=== PATIENT | female | born 1965 | race Caucasian/White ===

== ENCOUNTER 2017-09-04 23:27 | Emergency (ER) | payer BC ==
--- NOTE | 2017-09-05 00:34 | ED PDOC ---
HPI: Psych/Substance Abuse Time Seen by Provider: 09/04/17 23:41 Chief Complaint (Nursing): Psychiatric Evaluation Chief Complaint (Provider): crisis eval History Per: Patient, Family Additional Complaint(s): 52 y/o female presents with family for crisis eval. As per daughter, patient states she has been under a lot of stress and is not eating or sleeping. Patient also having "tantrums", where she will yell and scratch herself and cry. Patient denies suicidal/homicidal ideations, hallucinations, acute physical complaints. Past Medical History Reviewed: Historical Data, Nursing Documentation, Vital Signs Vital Signs: Last Vital Signs Temp 98.0 F 09/04/17 23:33 Pulse 20 L 09/04/17 23:33 Resp 18 09/04/17 23:33 BP 161/98 H 09/04/17 23:33 Pulse Ox 99 09/04/17 23:33 - Medical History PMH: HTN - Surgical History Surgical History: No Surg Hx - Family History Family History: States: No Known Family Hx - Living Arrangements Living Arrangements: With Family - Social History Current smoker - smoking cessation education provided: No Alcohol: None Drugs: Denies - Home Medications Home Medications: Ambulatory Orders Medication Instructions Recorded amLODIPine [Norvasc] 1 tab PO DAILY 06/12/15 - Allergies Allergies/Adverse Reactions: Allergies Allergy/AdvReac Type Severity Reaction Status Date / Time No Known Allergies Allergy Verified 09/04/17 23:33 Review of Systems ROS Statement: Except As Marked, All Systems Reviewed And Found Negative Psych: Positive for: Depression Physical Exam - Reviewed Nursing Documentation Reviewed: Yes Vital Signs Reviewed: Yes - Physical Exam Appears: Positive for: Well, Non-toxic, No Acute Distress Head Exam: Positive for: ATRAUMATIC, NORMAL INSPECTION, NORMOCEPHALIC Skin: Positive for: Normal Color Eye Exam: Positive for: Normal appearance ENT: Positive for: Normal ENT Inspection Cardiovascular/Chest: Positive for: Regular Rate, Rhythm Respiratory: Positive for: Normal Breath Sounds Gastrointestinal/Abdominal: Positive for: Normal Exam Back: Positive for: Normal Inspection Extremity: Positive for: Normal ROM Neurologic/Psych: Positive for: Alert, Oriented - ECG O2 Sat by Pulse Oximetry: 99 - Progress ED Course And Treament: Patient evaluated by lot worker; does not meet criteria for admission at this time as per Dr. Perdomo. Appt given for Patient stable for discharge Advised follow up as scheduled Return precautions given Disposition - Clinical Impression Clinical Impression: Anxiety - Patient ED Disposition Is Patient to be Admitted: No Counseled Patient/Family Regarding: Diagnosis, Need For Followup - Disposition Disposition: Routine/Home Disposition Time: 02:25 Condition: IMPROVED Instructions: Anxiety, Adult (DC) Forms: [employer] (Beninese), [facility] ED School/Work Excuse Print Language: TURKMEN
[2017-09-05 00:46] VITALS: BP 146/93; PULSE 74; RESP 16; TEMP 98.4
[2017-09-05 02:57] VITALS: O2SAT 97
== END 2017-09-05 02:56 | disposition home or self-care (01) ==
LOC: H.ER 23:27
DX: F41.9 Anxiety disorder, unspecified (principal); I10 Essential (primary) hypertension

== ENCOUNTER 2017-09-06 10:24 | Emergency (ER) | payer BC ==
[2017-09-06 10:29] VITALS: BMI 24.3
[2017-09-06 10:31] VITALS: BP 125/81; PULSE 79; RESP 16; TEMP 99.1; O2SAT 96
--- NOTE | 2017-09-06 10:46 | ED PDOC ---
HPI: Psych/Substance Abuse Time Seen by Provider: 09/06/17 10:31 Chief Complaint (Nursing): Psychiatric Evaluation Chief Complaint (Provider): Psychiatric Evaluation History Per: Patient, Family Onset/Duration Of Symptoms: Days Current Symptoms Are (Timing): Still Present Additional Complaint(s): 52 y/o female with a PMHx of HTN and psychiatric admission 20 years ago (not been on medications) brought by family after being seen 2 days ago for evaluation of stress induced anxiety, decreased appetite, and unhappiness. Unclear if patient has had suicidal ideations, but denies any homicidal ideations. PCP: None reported Past Medical History Reviewed: Historical Data, Nursing Documentation, Vital Signs Vital Signs: Last Vital Signs Temp 99.1 F 09/06/17 10:30 Pulse 79 09/06/17 10:30 Resp 16 09/06/17 10:30 BP 125/81 09/06/17 10:30 Pulse Ox 96 09/06/17 10:30 - Medical History PMH: HTN Denies: Diabetes, Hepatitis, HIV, Seizures, Sexually Transmitted Disease - Surgical History Surgical History: No Surg Hx - Family History Family History: States: Unknown Family Hx - Home Medications Home Medications: Ambulatory Orders Medication Instructions Recorded amLODIPine [Norvasc] 1 tab PO DAILY 06/12/15 hydrOXYzine Pamoate [Vistaril] 50 mg PO HS #5 cap 09/06/17 - Allergies Allergies/Adverse Reactions: Allergies Allergy/AdvReac Type Severity Reaction Status Date / Time lisinopril Allergy SWELLING Verified 09/06/17 10:41 Review of Systems ROS Statement: Except As Marked, All Systems Reviewed And Found Negative Psych: Positive for: Anxiety, Suicidal ideation (unclear, no homicidal ideations ), Other (unhappiness) Physical Exam - Reviewed Nursing Documentation Reviewed: Yes Vital Signs Reviewed: Yes - Physical Exam Appears: Positive for: Non-toxic, No Acute Distress Head Exam: Positive for: ATRAUMATIC, NORMAL INSPECTION, NORMOCEPHALIC Skin: Positive for: Normal Color, Warm, Dry. Negative for: Rash Eye Exam: Positive for: EOMI, Normal appearance, PERRL ENT: Positive for: Normal ENT Inspection Neck: Positive for: Normal, Painless ROM, Supple Cardiovascular/Chest: Positive for: Regular Rate, Rhythm. Negative for: Murmur Respiratory: Positive for: Normal Breath Sounds. Negative for: Respiratory Distress Gastrointestinal/Abdominal: Positive for: Normal Exam, Soft. Negative for: Tenderness Back: Positive for: Normal Inspection. Negative for: L CVA Tenderness, R CVA Tenderness, Vertebral Tenderness Extremity: Positive for: Normal ROM. Negative for: Pedal Edema, Deformity Neurologic/Psych: Positive for: Alert, Oriented. Negative for: Motor/Sensory Deficits - ECG O2 Sat by Pulse Oximetry: 96 (RA) Pulse Ox Interpretation: Normal Medical Decision Making Medical Decision Making: Plan: -Crisis evaluation Scribe Attestation: Documented by Efraín Tovar, acting as a scribe for Harley Reyes MD. Provider Scribe Attestation: All medical record entries made by the Scribe were at my direction and personally dictated by me. I have reviewed the chart and agree that the record accurately reflects my personal performance of the history, physical exam, medical decision making, and the department course for this patient. I have also personally directed, reviewed, and agree with the discharge instructions and disposition. Disposition - Clinical Impression Clinical Impression: Adjustment disorder - Patient ED Disposition Is Patient to be Admitted: No Counseled Patient/Family Regarding: Studies Performed, Diagnosis, Need For Followup, Rx Given - Disposition Referrals: Community Mental Health [Outside] Disposition: Routine/Home Disposition Time: 12:11 Condition: FAIR Prescriptions: hydrOXYzine Pamoate [Vistaril] 50 mg PO HS #5 cap Instructions: Adjustment Disorder Forms: [employer] (Occitan) Print Language: GRENADIAN
== END 2017-09-06 12:26 | disposition home or self-care (01) ==
LOC: H.ER 10:24
DX: F43.22 Adjustment disorder with anxiety (principal); Z00.8 Encounter for other general examination; I10 Essential (primary) hypertension

== ENCOUNTER 2017-09-24 23:38 | Inpatient (IN) | payer BC ==
[2017-09-24 23:38] VITALS: BMI 24.3
[2017-09-25 00:57] VITALS: O2SAT 100
[2017-09-25 01:03] LABS: BASO % 0.5 % (0.0-2.0); EOS % 0.5 % (0.0-4.0); HEMOGLOBIN 15.4 g/dL (12.0-16.0); LYMPH # 2.1 K/uL (1.0-4.3); LYMPH % 21.2 % (20.0-40.0); MEAN CELL VOLUME 94.3 fl (81.0-99.0); MEAN CORPUSCULAR HEMOGLOBIN 32.3 pg (27.0-31.0); MEAN CORPUSCULAR HGB CONC 34.2 g/dL (33.0-37.0); MEAN PLATELET VOLUME 8.8 fl (7.2-11.7); MONO # 0.9 K/uL (0.0-0.8); MONO % 8.5 % (0.0-10.0); NEUT % 69.3 % (50.0-75.0); NRBC % 0.1 % (0.0-0.0); RBC 4.78 Mil/uL (3.80-5.20); RED CELL DISTRIBUTION WIDTH 12.3 % (11.5-14.5); WHITE BLOOD COUNT 10.1 K/uL (4.8-10.8)
[2017-09-25 01:04] LABS: SQUAMOUS EPITHIAL 6 /hpf (0-5); URINE BACTERIA OCC (<OCC); URINE BILIRUBIN NEGATIVE (NEGATIVE); URINE BLOOD NEGATIVE (NEGATIVE); URINE CLARITY CLOUDY (Clear); URINE COLOR AMBER (YELLOW); URINE GLUCOSE (UA) NEG (Normal); URINE LEUKOCYTE ESTERASE SMALL Leu/uL (Negative); URINE PROTEIN 100 mg/dL (NEGATIVE); URINE UROBILINOGEN 0.2-1.0 mg/dL (0.2-1.0)
[2017-09-25 01:13] LABS: BLOOD UREA NITROGEN 24 mg/dl (7-17); CALCIUM 9.8 mg/dL (8.4-10.2); GFR AFRICAN-AMERICAN > 60; GFR NON-AFRICAN AMERICAN > 60
[2017-09-25 01:31] LABS: BARBITURATES, UR NEGATIVE (NEGATIVE); BENZODIAZEPINES, UR NEGATIVE (NEGATIVE); OPIATES, UR NEGATIVE (NEGATIVE); PHENCYCLIDINE, UR NEGATIVE (NEGATIVE)
--- NOTE | 2017-09-25 02:48 | ED PDOC ---
HPI: Psych/Substance Abuse Time Seen by Provider: 09/24/17 23:52 Chief Complaint (Nursing): Psychiatric Evaluation Chief Complaint (Provider): Psychiatric Evaluation History Per: Family (daughter) History/Exam Limitations: no limitations Onset/Duration Of Symptoms: Days (a few) Current Symptoms Are (Timing): Still Present Additional History Per: Patient, EMS Additional Complaint(s): 52 year old female with a pmhx of depression presents to the ED via EMS with daughter who states patient has been depressed for the past couple of days. As per daughter, her mother has not been eating / drinking, verbalized suicidal ideation, and is exhibiting paranoid bizarre behavior where she is refusing to be touched. Otherwise, the patient has no medical complaints. (-) fever, (-) cough, (-) shortness of breath, (-) vomiting. PMD: Dr. Tinoco in [place] Past Medical History Reviewed: Historical Data, Nursing Documentation, Vital Signs Vital Signs: Last Vital Signs Temp 97.9 F 09/24/17 23:55 Pulse 87 09/24/17 23:55 Resp 18 09/24/17 23:55 BP 147/94 H 09/24/17 23:55 Pulse Ox 100 09/24/17 23:55 - Medical History PMH: Dementia, Depression, HTN Denies: Diabetes, Hepatitis, HIV, Seizures, Sexually Transmitted Disease - Family History Family History: States: Unknown Family Hx - Home Medications Home Medications: Ambulatory Orders Medication Instructions Recorded amLODIPine [Norvasc] 1 tab PO DAILY 06/12/15 hydrOXYzine Pamoate [Vistaril] 50 mg PO HS #5 cap 09/06/17 - Allergies Allergies/Adverse Reactions: Allergies Allergy/AdvReac Type Severity Reaction Status Date / Time lisinopril Allergy SWELLING Verified 09/24/17 23:56 Review of Systems ROS Statement: Except As Marked, All Systems Reviewed And Found Negative Constitutional: Negative for: Fever, Other (refusing to eat or drink) Respiratory: Negative for: Cough, Shortness of Breath Gastrointestinal: Negative for: Vomiting Psych: Positive for: Depression, Suicidal ideation, Other (paranoid, bizarre behavior, refusing to be touched) Physical Exam - Reviewed Nursing Documentation Reviewed: Yes Vital Signs Reviewed: Yes - Physical Exam Comments: GENERAL APPEARANCE: Patient is awake, alert, oriented x 3, in no acute distress. SKIN: Warm, dry; (-) cyanosis HEAD: (-) scalp swelling, (-) scalp tenderness. EYES: (-) conjunctival pallor, (-) scleral icterus, (-) nystagmus. ENMT: Mucous membranes moist. Airway patent: (-) stridor. NECK: (-) tenderness, (-) stiffness, (-) lymphadenopathy. HEART AND CARDIOVASCULAR: (-) irregularity; (-) murmur, (-) gallop. CHEST AND RESPIRATORY: (-) rales, (-) rhonchi, (-) wheezes; breath sounds equal. ABDOMEN: Soft, (-) distention, (-) tenderness, (-) guarding. NEURO AND PSYCH: Mental status as above. 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 Pupils equal and reactive; EOMI; (-) facial asymmetry ; tongue and uvula midline. Strength symmetric. - Laboratory Results Result Diagrams: 09/25/17 00:50 09/25/17 00:50 - ECG O2 Sat by Pulse Oximetry: 100 (RA) Pulse Ox Interpretation: Normal Medical Decision Making Medical Decision Making: Time: 00:27 Initial Impression: psychiatric evaluation Initial Plan: --EKG --Alcohol serum --BMP --Drug screen --CBC with differential --CXR --Ativan 1 mg PO --Macrobid 100 mg PO --1:1 obsevation --Urinalysis Labs reviewed: UTI noted, K 3.4 CXR: NAD, as read by DARRON. EKG: NSR at 90 bpm, (-) acute ST changes, as read by DARRON. 0200 Daughter states that the patient is becoming anxious. Patient is laying in bed comfortably in no acute distress. Patient medicated with ativan po, macrobid po and KCl po, otherwise the patient is medically cleared, pending crisis evaluation. 0300 Patient seen and evaluated by crisis. After crisis evaluation, plan will be for inpatient psych admission as per Dr. Burgess. On re-evaluation, patient is clam and cooperative at this time, has no complaints. Scribe Attestation: Documented by Tamara Latham, acting as a scribe for Michelle Colbert PA-C. Provider Scribe Attestation: All medical record entries made by the Scribe were at my direction and personally dictated by me. I have reviewed the chart and agree that the record accurately reflects my personal performance of the history, physical exam, medical decision making, and the department course for this patient. I have also personally directed, reviewed, and agree with the discharge instructions and disposition. Disposition - Clinical Impression Clinical Impression: Depression - Patient ED Disposition Is Patient to be Admitted: Yes Counseled Patient/Family Regarding: Studies Performed, Diagnosis - Disposition Disposition Time: 03:00 Condition: STABLE Forms: [employer] (Tajik) - PA / KINDER TEACHER / Resident Statement / has reviewed & agrees with the documentation as recorded.
[2017-09-25] MEDS ORDERED: Potassium Chloride 20 mEq ER Tab PO ONE ×2 (02:54→03:16)
[2017-09-25] MEDS ORDERED: Alum-Mag Hydrox-Simethicone Susp (30 mL) PO PRN (04:27)
[2017-09-25] MEDS ORDERED: DiphenhydrAMINE 50 mg/ml Inj IM PRN (04:27)
--- NOTE | 2017-09-25 06:10 | PCM.BM ---
<AlexandragemmaRubiosudhir P - Last Filed: 09/25/17 06:08> Treatment Plan Problems - Problems identified on initial assessmt Anxiety Date Initiated: 09/25/17 Time Initiated: 06:08 Assessment reference: NA Status: Active Hopelessness/Helplessness Date Initiated: 09/25/17 Time Initiated: 06:09 Assessment reference: NA Status: Active Altered Sleep Patterns Date Initiated: 09/25/17 Time Initiated: 06:09 Assessment reference: NA Status: Active Treatment assets and liabiliti Patient Assests: cooperative, ADL independent, physically healthy, negotiates basic needs, cognitively intact Patient Liabilities: financial problems, poor support system, language/speech - Milieu Protocol Maintain good personal hygiene: daily Encourage regular showers, daily Remind patient to perform daily oral care, daily Assist patient to perform ADL's Conduct patient checks and document Observation sheet: Q15 minutes Maintain personal safety: every shift Educate patient to report safety concerns to staff, every shift Monitor environment for contraband/sharps Medication safety: Monitor for expected outcome, potential side effects: every shift, Assess barriers to learning: every shift, Assess readiness for medication education: every shift <MiriJinny - Last Filed: 09/27/17 16:05> Treatment assets and liabiliti Patient Assests: adapts well, cooperative, motivated, self-reliant, ADL independent, physically healthy, good support system, negotiates basic needs, good past tx response (no hospitalizations in 20+years), cognitively intact Patient Liabilities: relationship conflicts (recently ended long-term romantic relationship), medical problems (HTN, UTI), language/speech (primarily bulgarian speaking - does understand limited kuwaiti) Family Contact Family involvement: Family/SO is involved Family contact: Patient agrees to contact, Family has been contacted by patient , Telephone contact initiated by staff Family contact name: Ashlee(daughter)[phone] Family contacted how many times per week?: 2 Family contact comment: Automotive Service Consultant placed call to patients daughter (Ashlee ) to discuss pts progress on 3NP, collect further collateral and address any family concerns. Automotive Service Consultant notified family that patient presented with brighter affect, organized though process and denied AH/VH/SI/HI/paranoia on . However, pt. decompensated overnight, and was found in distress this morning , reporting AH/SI/paranoia and restlessness. Automotive Service Consultant assured pts daughter that pt has been medicated and is reporting significant improvement in sxs of anxiety and AH since this morning. Pt. remains on a 1:1 for safety but is denying current SI. Automotive Service Consultant provided extensive psychoeducation pts sxs and current medications. Pts daughter expressed understanding of the above and inquired whether pts family has say over pts medications and discharge. Automotive Service Consultant provided additional psychoeducation regarding nature of tx provided on a voluntary unit, necessary consents, option of 48 hour notice and possibility of screening by [facility] in the event a 48 hour notice is signed. Pts daughter expressed understanding. Automotive Service Consultant informed pts family that secondary to pts insurance, pt will have to recieve OPS at a designated location determined by [facility]. Automotive Service Consultant to continue providing patients family with updates through- out pts stabilization and discharge planning. - Goals for Treatment Patient goals for treatment: Patient to continue stabilization on 3NP through medication management and group/supportive therapy to address sxs of depression , manage sxs of psychosis(thought blocking, paranoia, VH/AH) and eliminate SI. Patient to be encouraged to attend groups regularly to promote self-awareness, reality testing, and improve insight, compliance, coping skills and self- esteem. Patient to be provided with referral for appropriate level of aftercare to reduce risk of future hospitalizations and ensure safety in the community. Discharge/Continuing Care - Education Needs Education Needs: Family Medication, Family Diagnosis/Disease Process, Family Coping Skills, Family Community resources, Family Aftercare Safety Plan, Patient Medication, Patient Diagnosis/Disease Process, Patient Coping Skills, Patient Community resources, Patient Aftercare Safety Plan - Discharge Discharge Criteria: Tolerates medication w/o severe side effects, Free of Suicidal thoughts, Free of paranoid thoughts, Free of agitation, Normal sleep pattern, Ability to care for self, Reduction of target symptoms (AH/VH, organization of thoughs) Discharge to:: Home, With Family, Other ([employer]- OPS) - Treatment Team Participation Patient/Family/SO Statement: 09/27/17 16:09 Patient attended tx team this morning to discuss progress on 3NP and tx goals. Pt. presented as tearful and restless. Pt. unable to sit still, moving in chair and putting head down on table repeatedly through-out interaction. Pt. reported "very bad thoughts. Pt. initially denied auditory hallucinations but later reported vague AH. Pt. reported visual hallucinations of "ugly, bad things" but when asked to elaborate reported "I don't see things. I think things. I cant concentrate." Pt. reported suicidal ideations denied plan or intent but was unable to adequately contract for safety on 3NP. Pt. continued to reported difficulties swallowing but reported improvement in abaility to eat since 09/26. Pt. reported sleep disturbances but reported better sleep than night before. Pt. suspicious on approach. Thoughts: disorganized, fragmented. Some thought blocking noted. Speech: unproductive, hesitant, slow and quiet. Patient required significant encouragement to take medications but agreeable following significant psychoeducation. Patient remains on 1:1 for safety precautions. Discussed with Family/SO: No Was Patient/Family/SO present at Treatment Team Meeting: Yes <Edith Burgess - Last Filed: 09/28/17 13:00> - Diagnosis (1) Depression Status: Acute Interventions: psychotherapy, pharmacotherapy 09/28/17 13:00
--- NOTE | 2017-09-25 08:34 | RAD ---
Date of service: 09/25/2017 PROCEDURE: CHEST RADIOGRAPH, 1 VIEW HISTORY: psych eval COMPARISON: None available. FINDINGS: LUNGS: No acute cardiopulmonary disease appreciated. PLEURA: No pneumothorax or pleural fluid seen. CARDIOVASCULAR: Normal. OSSEOUS STRUCTURES: No significant abnormalities. VISUALIZED UPPER ABDOMEN: Normal. OTHER FINDINGS: None. IMPRESSION: No acute cardiopulmonary disease appreciated.
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
--- NOTE | 2017-09-25 13:58 | PCM.PSYCH ---
Initial Psychiatric Evaluation - Initial Psychiatric Evaluation Type of Admission: Voluntary Legal Status: Capacity Chief Complaint (in patient's own words): I think I had a nervous break down Patient's Reaction to Hospitalization: pt requested help History of Present Illness and Precipitating Events: pt is 52ys old female, previous diagnosis of depression and one hospitalization in [place] about 20ys ago, currently not in treatment pt for past six months has been increasingly depressed due to break up of a relation she had for past 11ys,also increased financial difficulties pt reported decreased sleep with early insomnia, decreased appetite with at least 10lb loss, pt for past week, had low energy , psychomotor retardation, unable to get out of bed, no interest in any of daily life activities, on the day of evaluation pt became almost catatonic, also beame psychotic with paranoid delusions towards family members, she then started scratching herself irrationally and started having suicidal thoughts, she was brought to ER for evaluation on the unit pt isolative in her room, initially guarded, depressed mood and affect, passive suicidal ideation withut active plan or intent on the unit, denied command hallucinations, denied homicidal ideation Current Medications: Active Medications Generic Name Dose Route Start Last Admin Trade Name Freq PRN Reason Stop Dose Admin Acetaminophen 650 mg 09/25/17 04:27 Tylenol 325mg Tab PO Q4 PRN Pain, moderate (4-7) Al Hydrox/Mg Hydrox/Simethicone 30 ml 09/25/17 04:27 Maalox Plus 30 Ml PO Q4 PRN Dyspepsia Amlodipine Besylate 10 mg 09/25/17 09:00 09/25/17 10:22 Norvasc PO 10 mg DAILY KALI Administration Bacitracin 1 applic 09/25/17 17:00 Bacitracin Oint TOP TID KALI Diphenhydramine HCl 50 mg 09/25/17 04:27 Benadryl IM Q6 PRN Extrapyramidal S/S Unable PO Diphenhydramine HCl 50 mg 09/25/17 04:27 Benadryl PO HS PRN Sleep Haloperidol 5 mg 09/25/17 04:27 Haldol PO Q4 PRN Agitation Haloperidol Lactate 5 mg 09/25/17 04:27 Haldol IM Q4 PRN Agitation, Unable to Take PO Lorazepam 1 mg 09/25/17 04:27 Ativan PO Q6 PRN Anxiety/Agitation Magnesium Hydroxide 30 ml 09/25/17 04:27 Milk Of Magnesia PO HS PRN Constipation Mirtazapine 7.5 mg 09/25/17 22:00 Remeron PO HS KALI Nitrofurantoin Macrocrystals 100 mg 09/25/17 09:00 09/25/17 10:22 Macrobid PO 100 mg Q12 KALI Administration Protocol Past Psychiatric History - Past Psychiatric History Explanation of prior treatment: one hospitalization 20ys ago for depression History of ETOH/Drug Use: denied Pertinent Medical Hx (Current Medical&Sleep Prob, Allergies): Allergies Allergy/AdvReac Type Severity Reaction Status Date / Time lisinopril Allergy SWELLING Verified 09/24/17 23:56 amLODIPine [Norvasc] 1 tab PO DAILY 06/12/15 hydrOXYzine Pamoate [Vistaril] 50 mg PO HS #5 cap 09/06/17 Mental Status Examination - Personal Presentation Personal Presentation: Looks stated age - Affect Affect: Constricted - Motor Activity Motor Activity: Psychomotor Retardation - Reliability in Providing Information Reliability in Providing Information: Fair - Speech Speech: Relevant - Mood Mood: Depressed, Anxious - Formal Thought Process Formal Thought Process: Paranoia - Hallucinations/Delusions Additional comments: denied perceptual disturbances, non elicited - Obsessions/Compulsions Obsessions: No Compulsions: No - Cognitive Functions Orientation: Person, Place, Situation Sensorium: Alert Abstract Thinking: Brandon - Risk Risk: Suicidal, Self-mutilation, Diminished functioning - Strength & Assets Inventory Strength & Assets Inventory: Family support - Limitations Additional comments: recent break p DSM 5 DX - DSM 5 DSM 5 Diagnosis: major depression recurrent severe - Recommended/Plan of Treatment Treatment Recommendations and Plan of Treatment: start remeron 7.5mg qhs, increase gradually CBT group and supportive therapy monitor pt for psychopharmacological effect and side effect profile
[2017-09-25] MEDS: Bacitracin OINT 15GM TOP SCH (17:17)
--- NOTE | 2017-09-25 17:43 | CARD ---
APPROVED REPORT Date of service: 09/25/2017 EKG Measurement Heart [id number] <Conclusion> Normal sinus rhythm Normal ECG
[2017-09-26 07:11] LABS: HDL CHOLESTEROL 46 MG/DL (30-70)
[2017-09-26 07:21] LABS: LDL CHOLESTEROL 121 mg/dL (0-129)
[2017-09-26 07:27] LABS: T4 9.22 ug/dl (5.5-11.0)
[2017-09-26] MEDS: Bacitracin OINT 15GM TOP SCH ×3 (11:08→16:45)
--- NOTE | 2017-09-26 11:24 | PCM.PYCHPN ---
Psychiatric Progress Note - Psychiatric Progress Note Patient seen today, length of contact: pt evaluated discussed with team chart reviewed Patient Chief Complaint: I hear the voices telling me all the bad things they tell me to hurt myself Problems Identified/Issues Discussed: pt on evaluation, restless anxious, guarded paranoid, internally preoccupied, reported having command auditory hallucinations asking her to hurt herself , also putting her down and making fun of her appearance, pt reported the voices are putting ugly thoughts in her mind which she could not share pt presenting with somatic complaints, restless , reporting she has difficulty swallowing , poor appetite, nausea pt appears responding to internal stimuli and continues to have positive thoughts of suicide to hang herself Medical Problems: one hospitalization 20ys ago for depression DSM 5 Symptoms Update: major depression severe with psychotic features Medication Change: Yes (start risperidone) Medical Record Reviewed: Yes Mental Status Examination - Cognitive Function Orientation: Person, Place, Situation Attention: Poor Concentration: Poor Fund of Knowledge: Poor Decription of patient's judgement and insights: poor impulse control - Mood Mood: Depressed, Anxious - Affect Affect: Constricted - Formal Thought Process Formal Thought Process: Hallucinations, Delusions, Paranoia, Loosening of associations Psychotic Thoughts and Behaviors: pt has positive auditory hallucinations asking her to hurt herself - Suicidal Ideation Suicidal Ideation: Yes - Homicidal Ideation Homicidal Ideation: No Goal/Treatment Plan - Goal/Treatment Plan Need for Continued Stay: Severe depression anxiety, Discharge may exacerbated symptoms Progress Toward Problem(s) and Goals/Treatment Plan: pt having command auditory hallucinations to hurt herself, will start 1:1 observation for suicidal risk increse remeron 15mg qhs, start risperidone 1mg bid with cogentin 0.5mg bid monitor pt for psychopharmacological effect and side effect profile
--- NOTE | 2017-09-26 16:43 | CON ---
Copied To: Darren Patel MD Attending MD: Darren Patel MD DATE: 09/26/2017 CHIEF COMPLAINT: The patient was admitted under psych unit. Medical consult was called to our medical issues. The patient is admitted to psych unit for worsening depression. HISTORY OF PRESENT ILLNESS: This is a 52-year-old female, known case of hypertension, dyspepsia, vitamin D deficiency, insomnia, hyperlipidemia, vitamin B12 deficiency, and history of angioneurotic edema, most likely from lisinopril, who was feeling depressed in last couple of days and according to daughter, the patient was verbalizing suicidal ideation and was exhibiting paranoid behavior, so the patient was brought to the emergency room and was admitted for further management. REVIEW OF SYSTEMS: Positive for depressed behavior and excessive drinking. Review of systems otherwise is negative for headache, dizziness, syncope, loss of consciousness, chest pain, shortness of breath, nausea, vomiting, diarrhea, constipation, any new joint or extremity pain. Review of systems of all other organ system is unremarkable. PAST MEDICAL HISTORY: Significant for hypertension, dyspepsia, vitamin B12 deficiency, vitamin D deficiency, hyperlipidemia, insomnia, diaphragmatic hernia, and history of angioneurotic edema from lisinopril. PAST SURGICAL HISTORY: Unremarkable. PERSONAL HISTORY: The patient has history of alcohol use. No substance abuse and no smoking. MEDICATIONS: The patient is on multiple medications, which includes doxepin 10 mg once a day, amlodipine 10 mg once a day, carvedilol 3.125 mg twice a day, famotidine 20 mg twice a day, vitamin D 1000 units once a day. The patient also is using Lotrel tablets daily for her perimenopausal disorder. FAMILY HISTORY: Noncontributory. ALLERGIES: THE PATIENT IS NOT ALLERGESIC TO ANY MEDICATIONS OTHER THAN LISINOPRIL, WHICH GIVES HER ANGIONEUROTIC EDEMA IN THE PAST. PHYSICAL EXAMINATION: GENERAL: Well-built, well-nourished 52-year-old female, in no acute distress. VITAL SIGNS: Temperature 97.1, pulse 82, respirations 18, and blood pressure 104/71. HEENT: Pupils reacting to light. No JVD. No thyromegaly. No lymphadenopathy. No nystagmus. Normocephalic, atraumatic skull. HEART: S1 and S2, normal and regular. No significant murmur, gallops, or rub is heard. LUNGS: Shows good bilateral air exchange. No rales or rhonchi. ABDOMEN: Soft and nontender. No organomegaly. No fluid. Bowel sounds are plus and normal. EXTREMITIES: No edema. No calf swelling. No tenderness. No acute ischemia. CENTRAL NERVOUS SYSTEM: The patient is alert, awake, and oriented x3. There is no sign of any acute gross focal motor or sensory neurological deficits. DIAGNOSTIC DATA: Available diagnostic data reviewed. WBC 10.1, hemoglobin 15.4, hematocrit 45, and platelet 241. Sodium 141, potassium 3.4, chloride 100, bicarb 26, BUN 18, and creatinine . Urine analysis was negative. Toxicology was negative. EKG showed normal sinus rhythm without any acute ST-T changes. Chest x-ray was clear. ADMITTING IMPRESSION: The patient with acute depression with suicidal ideation with history of hypertension, elevated cholesterol, dyspepsia, vitamin B12 and vitamin D deficiency, diaphragmatic hernia, history of cholelithiasis, insomnia, anorexia, and history of angioneurotic edema from lisinopril. PLAN: As ordered. Case and plan discussed with patient yesterday. Darren Patel MD
[2017-09-26] MEDS: Cholecalciferol 1,000 INTLU TAB PO SCH (16:45)
[2017-09-26] MEDS ORDERED: Risperidone M tab 0.5MG PO SCH (17:00)
[2017-09-26] MEDS ORDERED: Risperidone M tab 1 MG PO SCH (17:00)
[2017-09-27] MEDS: Bacitracin OINT 15GM TOP SCH ×3 (10:32→17:53)
[2017-09-27] MEDS: Cholecalciferol 1,000 INTLU TAB PO SCH (10:32)
--- NOTE | 2017-09-27 13:27 | PCM.PYCHPN ---
Psychiatric Progress Note - Psychiatric Progress Note Patient seen today, length of contact: pt evaluated discussed with team chart reviewed Patient Chief Complaint: I still have ugly thoughts, they make me very anxious, I am afraid I would hurt myself Problems Identified/Issues Discussed: pt evaluated with treatment team, presenting with anxious mood and affect, restless, relentless anxiety, fidgety , relates her anxiety to rpetitive thoughts and ugly visions in her mind, pt unable to elaborate on this scenes , stating she also hearing voices that makes her feel uncomfortable and unable to contract for safety stating that she feels she can hurt herself any time , discussed with pt the changing of risperidone to haldol for better response yesterday, also adding klonopin for anxiety encouraged to attend to groups pt appears responding to internal stimuli and continues to have positive thoughts of suicide to hurt herself Medical Problems: one hospitalization 20ys ago for depression DSM 5 Symptoms Update: major depression recurrent severe with psychotic features Medication Change: Yes (start haldol and klonopin) Medical Record Reviewed: Yes Mental Status Examination - Cognitive Function Orientation: Person, Place, Situation Attention: Poor Concentration: Poor Fund of Knowledge: Poor Decription of patient's judgement and insights: poor impulse control - Mood Mood: Depressed, Anxious - Affect Affect: Constricted - Formal Thought Process Formal Thought Process: Hallucinations, Delusions, Paranoia, Loosening of associations Psychotic Thoughts and Behaviors: pt has positive auditory hallucinations asking her to hurt herself - Suicidal Ideation Suicidal Ideation: Yes - Homicidal Ideation Homicidal Ideation: No Goal/Treatment Plan - Goal/Treatment Plan Need for Continued Stay: Severe depression anxiety, Discharge may exacerbated symptoms Progress Toward Problem(s) and Goals/Treatment Plan: pt having command auditory hallucinations to hurt herself, will continue 1:1 observation for suicidal risk remeron 15mg qhs, discontinue risperidone , start haldol 2mg bid, cogentin 0.5mg bid start klonopin 0.25mg bid monitor pt for psychopharmacological effect and side effect profile
--- NOTE | 2017-09-27 14:22 | PN ---
Copied To: Darren Patel MD Attending MD: Darren Patel MD DATE: 09/27/2017 SUBJECTIVE: The patient is seen and examined. Interim events noted. Psychiatric followup and intervention noted and appreciated. The patent remains in adult psych unit with one-to-one observation for paranoid thoughts. The patient denies any medical complaint. No chest pain. No shortness of breath. PHYSICAL EXAMINATION: GENERAL: The patient is in no acute distress. VITAL SIGNS: Stable. HEENT: S1 and S2, normal and regular. LUNGS: Good bilateral air exchange. ABDOMEN: Soft and nontender. EXTREMITIES: No edema. No calf swelling. No tenderness. No acute ischemia. 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 DIAGNOSTIC DATA: Available diagnostic data reviewed. ASSESSMENT: Overall, the patient's general medical condition is stable. Plan as ordered. Darren Patel MD
[2017-09-28] MEDS: Cholecalciferol 1,000 INTLU TAB PO SCH (10:03)
[2017-09-28] MEDS: Bacitracin OINT 15GM TOP SCH ×3 (11:32→19:27)
--- NOTE | 2017-09-28 14:44 | PN ---
Copied To: Darren Patel MD Attending MD: Darren Patel MD DATE: 09/28/2017 SUBJECTIVE: The patient seen and examined. Interim events noted. Psychiatric followup and intervention noted and appreciated. The patient remains in adult psych unit with observation for safety. The patient still has paranoid thoughts. PHYSICAL EXAMINATION: GENERAL: The patient is in no acute distress. VITAL SIGNS: Stable. HEART: S1 and S2, normal and regular. LUNGS: Good bilateral air exchange. ABDOMEN: Soft and nontender. EXTREMITIES: No edema. No calf swelling. No tenderness. No acute ischemia. ADMISSIONS ADVISOR: Exam is essentially unchanged. DIAGNOSTIC DATA: Available diagnostic data reviewed. ASSESSMENT AND PLAN: Overall, the patient's general medical condition is stable. Plan as ordered. Darren Patel MD [facility] # [id number]
--- NOTE | 2017-09-28 15:47 | PCM.PYCHPN ---
Psychiatric Progress Note - Psychiatric Progress Note Patient seen today, length of contact: pt evaluated discussed with team chart reviewed Patient Chief Complaint: I am hallucinating and I still have ugly thoughts Problems Identified/Issues Discussed: pt evaluated presenting with anxious mood and affect, restless, continues to have auditory hallucinations, also reporting intrusive thoughts of ugly and scary scenes, pt unable to elaborate on the content, continues to have active suicidal thoughts , pt restless and needs a lot of encouragement to take medications pt appears responding to internal stimuli and continues to have positive thoughts of suicide to hurt herself Medical Problems: one hospitalization 20ys ago for depression DSM 5 Symptoms Update: major depression with psychotic features Medication Change: Yes (increase haldol and klonopin) Medical Record Reviewed: Yes Mental Status Examination - Cognitive Function Orientation: Person, Place, Situation Attention: Poor Concentration: Poor Fund of Knowledge: Poor Decription of patient's judgement and insights: poor impulse control - Mood Mood: Depressed, Anxious - Affect Affect: Constricted - Formal Thought Process Formal Thought Process: Hallucinations, Delusions, Paranoia, Loosening of associations Psychotic Thoughts and Behaviors: pt has positive auditory hallucinations asking her to hurt herself - Suicidal Ideation Suicidal Ideation: Yes - Homicidal Ideation Homicidal Ideation: No Goal/Treatment Plan - Goal/Treatment Plan Need for Continued Stay: Severe depression anxiety, Discharge may exacerbated symptoms Progress Toward Problem(s) and Goals/Treatment Plan: pt having command auditory hallucinations to hurt herself, will continue 1:1 observation for suicidal risk remeron 15mg qhs, increase haldol 2mg tid, cogentin 0.5mg tid start klonopin 0.25mg tid monitor pt for psychopharmacological effect and side effect profile
[2017-09-29] MEDS: Cholecalciferol 1,000 INTLU TAB PO SCH (08:49)
[2017-09-29] MEDS: Bacitracin OINT 15GM TOP SCH ×3 (08:51→19:13)
--- NOTE | 2017-09-29 13:31 | PN ---
Copied To: Darren Patel MD Attending MD: Darren Patel MD DATE: 09/29/2017 SUBJECTIVE: The patient seen and examined. Interim events noted. Psychiatry followup noted and appreciated. The patient remains in psych unit with observation for safety. Denies any specific medical complaint. Still has ideations. PHYSICAL EXAMINATION: GENERAL: The patient is in no acute distress. VITAL SIGNS: Stable. HEART: S1 and S2. Normal and regular. LUNGS: Good bilateral air exchange. ABDOMEN: Soft, nontender. EXTREMITIES: No edema. No calf swelling. No tenderness. No acute ischemia. COMMISSIONS ANALYST: Exam is essentially unchanged. DIAGNOSTIC DATA: Available diagnostic data reviewed. ASSESSMENT AND PLAN: Overall, the patient's general medical condition is stable. Plan as ordered. Darren Patel MD
--- NOTE | 2017-09-29 15:40 | PCM.PYCHPN ---
Psychiatric Progress Note - Psychiatric Progress Note Patient seen today, length of contact: pt evaluated discussed with team chart reviewed Patient Chief Complaint: I STILL HAVE BAD THOUGHTS AND i DO NOT TRUST MYSELF Problems Identified/Issues Discussed: pt evaluated , continues to be anxious and dysphoric , reporting she still experiences, terrifying thoughts, scenes and voices, pt still unable to elaborate about the content however states they make her uncomfortable and unable to feel safe and continues to have thoughts to hurt herself pt observed to attend some of the groups, also observed to have better appetite and reported by staff to have improved sleep discussed increasing haldol Medical Problems: one hospitalization 20ys ago for depression DSM 5 Symptoms Update: major depression with psychotic features Medication Change: Yes (increase haldol ) Medical Record Reviewed: Yes Mental Status Examination - Cognitive Function Orientation: Person, Place, Situation Attention: Poor Concentration: Poor Fund of Knowledge: Poor Decription of patient's judgement and insights: poor impulse control - Mood Mood: Depressed, Anxious - Affect Affect: Constricted - Formal Thought Process Formal Thought Process: Hallucinations, Delusions, Paranoia, Loosening of associations Psychotic Thoughts and Behaviors: pt has positive auditory hallucinations asking her to hurt herself - Suicidal Ideation Suicidal Ideation: Yes - Homicidal Ideation Homicidal Ideation: No Goal/Treatment Plan - Goal/Treatment Plan Need for Continued Stay: Severe depression anxiety, Discharge may exacerbated symptoms Progress Toward Problem(s) and Goals/Treatment Plan: pt having command auditory hallucinations to hurt herself, will continue 1:1 observation for suicidal risk remeron 15mg qhs, increase haldol 2mg bid and 5mg qhs klonopin 0.25mg tid monitor pt for psychopharmacological effect and side effect profile
[2017-09-30] MEDS: Cholecalciferol 1,000 INTLU TAB PO SCH (09:27)
[2017-09-30] MEDS: Bacitracin OINT 15GM TOP SCH ×3 (09:29→17:15)
--- NOTE | 2017-09-30 12:45 | PCM.PYCHPN ---
Psychiatric Progress Note - Psychiatric Progress Note Patient seen today, length of contact: pt evaluated discussed with team chart reviewed Patient Chief Complaint: I feel something heavy on my chest and I visualize something scarry coming to get me Problems Identified/Issues Discussed: pt evaluated , continues to be dysphoric depressed, relentless anxiety continues to experience panic attacks with sense of doom continues to visualize scarry scenes she is unable to elaborate on, reported clearing off of the auditory hallucinations however continues to feel unsafe and worried about her safety Medical Problems: one hospitalization 20ys ago for depression DSM 5 Symptoms Update: major depression recurrent severe with psychotic features Medication Change: Yes (start effexor) Medical Record Reviewed: Yes Mental Status Examination - Cognitive Function Orientation: Person, Place, Situation Attention: Poor Concentration: Poor Fund of Knowledge: Poor Decription of patient's judgement and insights: poor impulse control - Mood Mood: Depressed, Anxious - Affect Affect: Constricted - Formal Thought Process Formal Thought Process: Hallucinations, Delusions, Paranoia, Loosening of associations Psychotic Thoughts and Behaviors: pt has positive auditory hallucinations asking her to hurt herself - Suicidal Ideation Suicidal Ideation: Yes - Homicidal Ideation Homicidal Ideation: No Goal/Treatment Plan - Goal/Treatment Plan Need for Continued Stay: Severe depression anxiety, Discharge may exacerbated symptoms Progress Toward Problem(s) and Goals/Treatment Plan: pt continues to have thoughts to hurt herself , will continue 1:1 observation for suicidal risk stat effexor 37.5mg daily, decrease remeron 7.5mg qhs, continue haldol 2mg bid and 5mg qhs increase klonopin 0.5mg tid monitor pt for psychopharmacological effect and side effect profile
--- NOTE | 2017-09-30 14:40 | PN ---
Copied To: Darren Patel MD Attending MD: Darren Patel MD DATE: 09/30/2017 SUBJECTIVE: The patient seen and examined. Interim events noted. Psychiatry followup noted and appreciated. The patient remains in adult psych unit. The patient is still on one-to-one observation. The patient feels okay. Denies any chest pain or shortness of breath. No specific medical complaints. PHYSICAL EXAMINATION: GENERAL: The patient is in no acute distress. VITAL SIGNS: Stable. Physical exam is essentially unchanged. DIAGNOSTIC DATA: Available diagnostic data reviewed. ASSESSMENT AND PLAN: Overall, the patient's general medical condition is stable. Plan as ordered. Darren Patel MD
[2017-09-30] MEDS: Venlafaxine 37.5 mg ER Cap PO STA (15:13)
[2017-10-01] MEDS: Cholecalciferol 1,000 INTLU TAB PO SCH (08:46)
[2017-10-01] MEDS: Bacitracin OINT 15GM TOP SCH ×3 (08:47→17:21)
[2017-10-01] MEDS ORDERED: Venlafaxine 37.5 mg ER Cap PO SCH (09:00)
--- NOTE | 2017-10-01 09:32 | PCM.BM ---
Treatment Plan Problems - Problems identified on initial assessmt Anxiety Date Initiated: 10/01/17 Time Initiated: 09:30 Assessment reference: NA Status: Active Hopelessness/Helplessness Date Initiated: 09/25/17 Time Initiated: 06:09 Assessment reference: NA Status: Active Altered Sleep Patterns Date Initiated: 09/25/17 Time Initiated: 06:09 Assessment reference: NA Status: Active Suicidal Ideation Date Initiated: 10/01/17 Time Initiated: 09:31 Assessment reference: NA Status: Active Treatment assets and liabiliti Patient Assests: adapts well, cooperative, motivated, self-reliant, ADL independent, physically healthy, good support system, negotiates basic needs, good past tx response (no hospitalizations in 20+years), cognitively intact Patient Liabilities: relationship conflicts (recently ended long-term romantic relationship), medical problems (HTN, UTI), language/speech (primarily moldovan speaking - does understand limited new zealander) - Milieu Protocol Maintain good personal hygiene: daily Encourage regular showers, daily Remind patient to perform daily oral care, daily Assist patient to perform ADL's Conduct patient checks and document Observation sheet: Q15 minutes Maintain personal safety: every shift Educate patient to report safety concerns to staff, every shift Monitor environment for contraband/sharps Medication safety: Monitor for expected outcome, potential side effects: every shift, Assess barriers to learning: every shift, Assess readiness for medication education: every shift Milieu Narrative: pt continues to have thoughts to hurt herself , will continue 1:1 observation for suicidal risk stat effexor 37.5mg daily, decrease remeron 7.5mg qhs, continue haldol 2mg bid and 5mg qhs increase klonopin 0.5mg tid monitor pt for psychopharmacological effect and side effect profile Family Contact Family involvement: Family/SO is involved Family contact: Patient agrees to contact, Family has been contacted by patient , Telephone contact initiated by staff Family contact name: Ashlee(daughter)[phone] Family contacted how many times per week?: 2 Family contact comment: Youth Services Specialist placed call to patients daughter (Ashlee ) to discuss pts progress on 3NP, collect further collateral and address any family concerns. Youth Services Specialist notified family that patient presented with brighter affect, organized though process and denied AH/VH/SI/HI/paranoia on 7/ 30. However, pt. decompensated overnight, and was found in distress this morning , reporting AH/SI/paranoia and restlessness. Youth Services Specialist assured pts daughter that pt has been medicated and is reporting significant improvement in sxs of anxiety and AH since this morning. Pt. remains on a 1:1 for safety but is denying current SI. Youth Services Specialist provided extensive psychoeducation pts sxs and current medications. Pts daughter expressed understanding of the above and inquired whether pts family has say over pts medications and discharge. Youth Services Specialist provided additional psychoeducation regarding nature of tx provided on a voluntary unit, necessary consents, option of 48 hour notice and possibility of screening by [facility] in the event a 48 hour notice is signed. Pts daughter expressed understanding. Youth Services Specialist informed pts family that secondary to pts insurance, pt will have to recieve OPS at a designated location determined by [facility]. Youth Services Specialist to continue providing patients family with updates through- out pts stabilization and discharge planning. - Goals for Treatment Patient goals for treatment: Patient to continue stabilization on 3NP through medication management and group/supportive therapy to address sxs of depression , manage sxs of psychosis(thought blocking, paranoia, VH/AH) and eliminate SI. Patient to be encouraged to attend groups regularly to promote self-awareness, reality testing, and improve insight, compliance, coping skills and self- esteem. Patient to be provided with referral for appropriate level of aftercare to reduce risk of future hospitalizations and ensure safety in the community. Discharge/Continuing Care - Education Needs Education Needs: Family Medication, Family Diagnosis/Disease Process, Family Coping Skills, Family Community resources, Family Aftercare Safety Plan, Patient Medication, Patient Diagnosis/Disease Process, Patient Coping Skills, Patient Community resources, Patient Aftercare Safety Plan - Discharge Discharge Criteria: Tolerates medication w/o severe side effects, Free of Suicidal thoughts, Free of paranoid thoughts, Free of agitation, Normal sleep pattern, Ability to care for self, Reduction of target symptoms (AH/VH, organization of thoughs) Discharge to:: Home, With Family, 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
--- NOTE | 2017-10-01 12:49 | PN ---
Copied To: Darren Patel MD Attending MD: Darren Patel MD DATE: 10/01/2017 SUBJECTIVE: The patient seen and examined. Interim events noted . Psychiatry followup and intervention noted and appreciated. The patient remains in adult psych unit. The patient is sleeping, arousable. Denies any specific medical complaints. Still has psychiatric issue with . PHYSICAL EXAMINATION: GENERAL: The patient is in no acute distress. VITAL SIGNS: Stable. HEART: S1 and S2, normal and regular. LUNGS: Good bilateral air exchange. ABDOMEN: Soft, nontender. EXTREMITIES: No edema, no calf swelling. No tenderness. No acute ischemia. AUTOMATIC CASTING MACHINE OPERATOR: Exam is essentially unchanged. DIAGNOSTIC DATA: Available diagnostic data reviewed. ASSESSMENT AND PLAN: Overall, the patient's general medical condition is stable. Plan as ordered. Darren Patel MD
--- NOTE | 2017-10-01 13:38 | PCM.PYCHPN ---
Psychiatric Progress Note - Psychiatric Progress Note Patient seen today, length of contact: pt evaluated discussed with team chart reviewed Patient Chief Complaint: Mele not well I do not trust myself Problems Identified/Issues Discussed: pt evaluated , continues to present with depressed mood and affect, on observation, pt while distracted, if watching TV or having meals does not exhibit the involuntary anxious movements observed during the interview ruling out the possibility of akathisia, she rated her depression today 7/10 continues to experience panic attacks with sense of doom continues to visualize scarry scenes she is unable to elaborate on, when asked if she would hurt herself on the unit, pt continues that she could not trust herself with her safety, reported clearing off of the auditory , hallucinations however continues to feel unsafe and worried about her safety Medical Problems: one hospitalization 20ys ago for depression DSM 5 Symptoms Update: major depression severe with psychotic features Medication Change: Yes (increase effexor) Medical Record Reviewed: Yes Mental Status Examination - Cognitive Function Orientation: Person, Place, Situation Attention: Poor Concentration: Poor Fund of Knowledge: Poor Decription of patient's judgement and insights: poor impulse control - Mood Mood: Depressed, Anxious - Affect Affect: Constricted - Formal Thought Process Formal Thought Process: Hallucinations, Delusions, Paranoia, Loosening of associations Psychotic Thoughts and Behaviors: pt has positive auditory hallucinations asking her to hurt herself - Suicidal Ideation Suicidal Ideation: Yes - Homicidal Ideation Homicidal Ideation: No Goal/Treatment Plan - Goal/Treatment Plan Need for Continued Stay: Severe depression anxiety, Discharge may exacerbated symptoms Progress Toward Problem(s) and Goals/Treatment Plan: pt continues to have thoughts to hurt herself , will continue 1:1 observation for suicidal risk increase effexor 37.5mg bid , continue remeron 7.5mg qhs, continue haldol 2mg bid and 5mg qhs , cogentin 0.5mg tid increase klonopin 0.5mg tid monitor pt for psychopharmacological effect and side effect profile
[2017-10-01] MEDS: Venlafaxine 37.5 mg ER Cap PO SCH (17:22)
[2017-10-02] MEDS: Venlafaxine 37.5 mg ER Cap PO SCH ×2 (08:37→17:54)
[2017-10-02] MEDS: Cholecalciferol 1,000 INTLU TAB PO SCH (08:37)
[2017-10-02] MEDS: Bacitracin OINT 15GM TOP SCH ×3 (08:38→17:55)
--- NOTE | 2017-10-02 12:12 | PCM.PYCHPN ---
Psychiatric Progress Note - Psychiatric Progress Note Patient seen today, length of contact: pt evaluated discussed with team chart reviewed Patient Chief Complaint: I still see the bad scenes in my mind, I feel anxious and I am afraid I will never get better Problems Identified/Issues Discussed: pt evaluated with the treatment team, pt communicating slightly more with staff and undersigned, reported continues to feel down and fearful, relates that to repeated scenes and disturbing visions in her mind which she is unable to elaborate on to the team, pt dysphoric presenting as hopeless and helpless, continues to feel she could not trust herself with her safety , , she reports some improvement in her sleep and her appetite , she is observed attempting to attend groups discussed with pt increasing the dose of the antidepressant effexor and cross titrating haldol with zyprexa due to partial response to haldol pt denied any current auditory hallucinations however continues to feel unsafe and worried about her safety Medical Problems: one hospitalization 20ys ago for depression DSM 5 Symptoms Update: major depression severe with psychotic features generalized anxiety disorder Medication Change: Yes (start zyprexa) Medical Record Reviewed: Yes Mental Status Examination - Cognitive Function Orientation: Person, Place, Situation Attention: WNL Concentration: Poor Association: WNL Fund of Knowledge: Poor Decription of patient's judgement and insights: poor impulse control - Mood Mood: Depressed, Anxious - Affect Affect: Constricted - Formal Thought Process Formal Thought Process: Hallucinations, Delusions, Paranoia, Loosening of associations Psychotic Thoughts and Behaviors: pt has positive auditory hallucinations asking her to hurt herself - Suicidal Ideation Suicidal Ideation: Yes - Homicidal Ideation Homicidal Ideation: No Goal/Treatment Plan - Goal/Treatment Plan Need for Continued Stay: Severe depression anxiety, Discharge may exacerbated symptoms Progress Toward Problem(s) and Goals/Treatment Plan: pt continues to have thoughts to hurt herself , will continue 1:1 observation for suicidal risk increase effexor 37.5mg bid , continue remeron 7.5mg qhs, discontinue haldol 2mg bid and continue 5mg qhs , start zyprexa 5mg daily cross tapering with haldol , cogentin 0.5mg tid decrease klonopin 0.25mg tid monitor pt for psychopharmacological effect and side effect profile
--- NOTE | 2017-10-02 13:58 | PN ---
Copied To: Darren Patel MD Attending MD: Darren Patel MD DATE: 10/02/2017 MEDICAL FOLLOWUP SUBJECTIVE: The patient seen and examined. Interim events noted. The patient still feels better, but denies any specific medical complaint. No chest pain. No shortness of breath. PHYSICAL EXAMINATION: GENERAL: The patient is in no acute distress. VITAL SIGNS: Stable. HEART: S1 and S2. Normal and regular. LUNGS: Good bilateral air exchange. ABDOMEN: Soft and nontender. EXTREMITIES: No edema. No calf swelling. No tenderness. No acute ischemia. WATCH CRYSTAL MOLDER: Exam is essentially unchanged. DIAGNOSTIC DATA: Available diagnostic data reviewed. ASSESSMENT AND PLAN: Overall, the patient is medically stable, still requires one-to-one observation for bad thoughts and ideas of self hurting. Psychiatry followup and intervention noted and appreciated. Plan as ordered. Darren Patel MD
[2017-10-02] MEDS: OLANZapine 5 mg Disintegrating Tab PO SCH (13:59)
[2017-10-03] MEDS: OLANZapine 5 mg Disintegrating Tab PO SCH (08:51)
[2017-10-03] MEDS: Venlafaxine 37.5 mg ER Cap PO SCH ×2 (08:51→19:05)
[2017-10-03] MEDS: Bacitracin OINT 15GM TOP SCH ×3 (08:52→19:07)
[2017-10-03] MEDS: Cholecalciferol 1,000 INTLU TAB PO SCH (08:52)
--- NOTE | 2017-10-03 13:21 | PN ---
Copied To: Darren Patel MD Attending MD: Darren Patel MD DATE: 10/03/2017 SUBJECTIVE: The patient is seen and examined. Interim events noted. The patient remains in psych unit with one-to-one observation for safety. The patient feels okay. Denies any specific medical complaints. Does have psychiatric issues. No chest pain. No shortness of breath. PHYSICAL EXAMINATION: GENERAL: The patient is in no acute distress. VITAL SIGNS: Stable. HEART: S1 and S2. Normal and regular. LUNGS: Good bilateral air exchange. ABDOMEN: Soft and nontender. EXTREMITIES: No edema. No calf swelling. No tenderness. No acute ischemia. PHOTOSTAT OPERATOR HELPER: Exam is essentially unchanged. DIAGNOSTIC DATA: Available diagnostic data reviewed. ASSESSMENT AND PLAN: Overall, the patient's general medical condition is stable. Plan as ordered. Darren Patel MD
--- NOTE | 2017-10-03 15:27 | PCM.PYCHPN ---
Psychiatric Progress Note - Psychiatric Progress Note Patient seen today, length of contact: pt evaluated discussed with team chart reviewed Patient Chief Complaint: I feel a little better , just a little but I am exhausted from the outside world Problems Identified/Issues Discussed: pt evaluated , appears more kempt, more attending to her appearance, pt slightly smiling to the undersigned, less dysphoric and more animated, seen interacting with other peers, better appetite pt anxious when explaining the reason of her hospitalization, stating feeling tired and overwhelmed when she thinks about conditions on the outside an the volume of work she has to take care of , pt presenting as emotionaly and physically drained, reported partial clearing off of her thought process and decrease in the intrusive thoughts , pt denied any current suicidal ideation thoughts or intents, 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 pt denied any current auditory hallucinations, no reported side effects of medications Medical Problems: one hospitalization 20ys ago for depression DSM 5 Symptoms Update: major depression recurrent severe with psychotic features Medication Change: No Medical Record Reviewed: Yes Mental Status Examination - Cognitive Function Orientation: Person, Place, Situation Attention: WNL Concentration: Poor Association: WNL Fund of Knowledge: Poor Decription of patient's judgement and insights: poor impulse control - Mood Mood: Depressed, Anxious - Affect Affect: Constricted - Formal Thought Process Formal Thought Process: Hallucinations, Delusions, Paranoia, Loosening of associations Psychotic Thoughts and Behaviors: pt has positive auditory hallucinations asking her to hurt herself - Suicidal Ideation Suicidal Ideation: No - Homicidal Ideation Homicidal Ideation: No Goal/Treatment Plan - Goal/Treatment Plan Need for Continued Stay: Severe depression anxiety, Discharge may exacerbated symptoms Progress Toward Problem(s) and Goals/Treatment Plan: pt denied any current thoughts to hurt herself , will dis continue 1:1 observation continue effexor 37.5mg bid , continue remeron 7.5mg qhs, haldol 5mg qhs ,and zyprexa 5mg daily ,cross tapering haldol with zyprexa gradually cogentin 1mg qhs klonopin 0.25mg tid monitor pt for psychopharmacological effect and side effect profile
[2017-10-04] MEDS ORDERED: Venlafaxine 37.5 mg ER Cap PO SCH (09:00)
[2017-10-04] MEDS: Cholecalciferol 1,000 INTLU TAB PO SCH (09:39)
[2017-10-04] MEDS: Bacitracin OINT 15GM TOP SCH ×3 (09:48→16:47)
--- NOTE | 2017-10-04 11:12 | PN ---
Copied To: Darren Patel MD Attending MD: Darren Patel MD DATE: 10/04/2017 SUBJECTIVE: The patient is seen and examined. Interim events noted. The patient remains in adult psych unit due to observation. Psychiatric followup noted and appreciated. The patient feels better. No medical complaints. No chest pain. No shortness of breath. No medical issue reported by nursing staff. PHYSICAL EXAMINATION: GENERAL: The patient is in no acute distress. VITAL SIGNS: Stable. HEART: S1, S2. Normal and regular. LUNGS: Good bilateral air exchange. ABDOMEN: Soft and nontender. EXTREMITIES: No edema. No calf swelling. No tenderness. No acute ischemia. MORTGAGE MANAGER: Exam is essentially unchanged. DIAGNOSTIC DATA: Available diagnostic data reviewed. The patient is medically stable. Blood pressure is on the worse side. We will reduce the blood pressure medicine. ASSESSMENT AND PLAN: Plan as ordered. Case and plan discussed with the patient and nurses. Darren Patel MD
--- NOTE | 2017-10-04 16:13 | PCM.PYCHPN ---
Psychiatric Progress Note - Psychiatric Progress Note Patient seen today, length of contact: pt evaluated discussed with team chart reviewed Patient Chief Complaint: I feel a little better , Problems Identified/Issues Discussed: pt evaluated with treatment team, she is more verbal , less dysphoric, reported mood a little better,continues to feel anxious and fearful at times reported the intrusive thoughts are less , appears more kempt, more attending to her appearance, pt slightly smiling and more animated, reported better sleep and better appetite pt anxious when explaining the reason of her hospitalization, stating feeling sad about the recent break up tired and overwhelmed with work and facing alot of financial difficulties with possible eviction from her home , CBT provided , discussing possible coping skills pt attending groups and seen interacting with other peers, pt denied any current auditory hallucinations, no reported side effects of medications Medical Problems: one hospitalization 20ys ago for depression Medication Change: Yes (discontinue zyprexa) Medical Record Reviewed: Yes Mental Status Examination - Cognitive Function Orientation: Person, Place, Situation Attention: WNL Concentration: Poor Association: WNL Fund of Knowledge: Poor Decription of patient's judgement and insights: poor impulse control - Mood Mood: Depressed, Anxious - Affect Affect: Constricted - Formal Thought Process Formal Thought Process: Hallucinations, Delusions, Paranoia, Loosening of associations Psychotic Thoughts and Behaviors: pt has positive auditory hallucinations asking her to hurt herself - Suicidal Ideation Suicidal Ideation: No - Homicidal Ideation Homicidal Ideation: No Goal/Treatment Plan - Goal/Treatment Plan Need for Continued Stay: Severe depression anxiety, Discharge may exacerbated symptoms Progress Toward Problem(s) and Goals/Treatment Plan: increase effexor 75mg qam and 37.5mg q1pm, continue remeron 7.5mg qhs, haldol 5mg qhs ,discontinue zyprexa 5mg daily ,cogentin 1mg qhs klonopin 0.25mg tid monitor pt for psychopharmacological effect and side effect profile
[2017-10-05] MEDS: Cholecalciferol 1,000 INTLU TAB PO SCH (08:46)
[2017-10-05] MEDS: Bacitracin OINT 15GM TOP SCH ×3 (09:00→17:46)
[2017-10-05] MEDS: Magnesium Hydroxide Susp 30 ml UD PO PRN (12:18)
--- NOTE | 2017-10-05 14:43 | PCM.PYCHPN ---
Psychiatric Progress Note - Psychiatric Progress Note Patient seen today, length of contact: pt evaluated discussed with team chart reviewed Patient Chief Complaint: I am trying to get better, Problems Identified/Issues Discussed: pt evaluated , more groomed, seen in day room, interacting with other peers, reported feeling less depressed but continues to be anxious particularly when thinking about her financial stressors and the recent break up, pt reported partial clearing off of the intrusive unpleasant scenes, reported partial improvement in appetite and better sleep , continues to be observed at times pacing in the hallway CBT provided , encouraged pt to continue to attend groups, no reported side effects of medications pt denied any current auditory hallucinations, denied any current thoughts of self harm Medical Problems: one hospitalization 20ys ago for depression DSM 5 Symptoms Update: major depression recurrent severe with psychotic features Medication Change: Yes (decrease haldol) Medical Record Reviewed: Yes Mental Status Examination - Cognitive Function Orientation: Person, Place, Situation Attention: WNL Concentration: Poor Association: WNL Fund of Knowledge: Poor Decription of patient's judgement and insights: poor impulse control - Mood Mood: Depressed, Anxious - Affect Affect: Constricted - Formal Thought Process Formal Thought Process: Hallucinations, Delusions, Paranoia, Loosening of associations Psychotic Thoughts and Behaviors: pt has positive auditory hallucinations asking her to hurt herself - Suicidal Ideation Suicidal Ideation: No - Homicidal Ideation Homicidal Ideation: No Goal/Treatment Plan - Goal/Treatment Plan Need for Continued Stay: Severe depression anxiety, Discharge may exacerbated symptoms Progress Toward Problem(s) and Goals/Treatment Plan: icontinue effexor 75mg qam and 37.5mg q1pm, continue remeron 7.5mg qhs, decrease haldol 4mg qhs , ,cogentin 1mg qhs klonopin 0.25mg tid monitor pt for psychopharmacological effect and side effect profile
[2017-10-06] MEDS: Cholecalciferol 1,000 INTLU TAB PO SCH (10:03)
[2017-10-06] MEDS: Bacitracin OINT 15GM TOP SCH ×3 (10:04→17:05)
--- NOTE | 2017-10-06 13:14 | PN ---
Copied To: Darren Patel MD Attending MD: Darren Patel MD DATE: 10/06/2017 SUBJECTIVE: The patient seen and examined. Interim events noted. Psychiatric followup and intervention noted and appreciated. The patient remains in adult psych unit. The patient is off one-to-one observation and improving psychiatry perkins. The patient feels okay. Denies any chest pain or shortness of breath. PHYSICAL EXAMINATION: GENERAL: The patient is in no acute distress. VITAL SIGNS: Stable. HEART: S1 and S2. Normal and regular. LUNGS: Good bilateral air exchange. ABDOMEN: Soft, nontender. EXTREMITIES: No edema. No calf swelling. No tenderness. No acute ischemia. MATERIALS MGMT TECH: Exam is essentially unchanged. DIAGNOSTIC DATA: Available diagnostic data reviewed. ASSESSMENT AND PLAN: Overall, the patient's general medical condition is stable. Plan as ordered. Darren Patel MD
--- NOTE | 2017-10-06 15:16 | PCM.PYCHPN ---
Psychiatric Progress Note - Psychiatric Progress Note Patient seen today, length of contact: pt evaluated discussed with team chart reviewed Patient Chief Complaint: I am sad because my room mate is leaving Problems Identified/Issues Discussed: pt evaluated , with translation, well groomed, more verbal reported feeling sad and anxious because her room mate is leaving, pt however reported feeling better in general in reference to her mood , reported improved sleep and improved appetite , reported clearing of of the visual hallucinations, rating them 3/10 , denied any current thoughts of self harm, observed, interacting with other peers and attending groups Medical Problems: one hospitalization 20ys ago for depression DSM 5 Symptoms Update: major depression recurrent severe with psychotic features Medication Change: Yes (decrease haldol) Medical Record Reviewed: Yes Mental Status Examination - Cognitive Function Orientation: Person, Place, Situation Attention: WNL Concentration: WNL Association: WNL Fund of Knowledge: Poor Decription of patient's judgement and insights: partial insight fair judgment - Mood Mood: Depressed, Anxious - Affect Affect: Constricted - Speech Speech: Soft - Formal Thought Process Formal Thought Process: Delusions Psychotic Thoughts and Behaviors: pt denied any current psychotic symptoms - Suicidal Ideation Suicidal Ideation: No - Homicidal Ideation Homicidal Ideation: No Goal/Treatment Plan - Goal/Treatment Plan Need for Continued Stay: Severe depression anxiety, Discharge may exacerbated symptoms Progress Toward Problem(s) and Goals/Treatment Plan: increase effexor 150mg daily continue remeron 7.5mg qhs, decrease haldol 2mg qhs , ,cogentin 1mg qhs klonopin 0.25mg tid monitor pt for psychopharmacological effect and side effect profile
[2017-10-06] MEDS: Magnesium Hydroxide Susp 30 ml UD PO PRN (21:28)
[2017-10-07] MEDS: Venlafaxine 150 mg ER Cap PO SCH (08:40)
[2017-10-07] MEDS: Bacitracin OINT 15GM TOP SCH ×3 (08:41→17:07)
[2017-10-07] MEDS: Cholecalciferol 1,000 INTLU TAB PO SCH (08:41)
--- NOTE | 2017-10-07 13:54 | PN ---
Copied To: Darren Patel MD Attending MD: Darren Patel MD DATE: 10/07/2017 SUBJECTIVE: The patient is seen and examined. Interim events noted. The patient remains in adult psych unit. Awake, responsive, ambulatory. One-to-one was discontinued. The patient feels okay. Denies any chest pain or shortness of breath. Still has some psychiatric issues. more nervous. PHYSICAL EXAMINATION: GENERAL: The patient is in no acute distress. VITAL SIGNS: Stable. Blood pressure is 120/79. HEART: S1 and S2. Normal and regular. LUNGS: Good bilateral air exchange. ABDOMEN: Soft, nontender. EXTREMITIES: No edema. No calf swelling. No tenderness. No acute ischemia. MULTI SHARE PROGRAM COORDINATOR: Exam is essentially unchanged. DIAGNOSTIC DATA: Available diagnostic data reviewed. ASSESSMENT AND PLAN: Overall, the patient's general medical condition is stable. Plan as ordered. Darren Patel MD
--- NOTE | 2017-10-07 17:11 | PCM.PYCHPN ---
Psychiatric Progress Note - Psychiatric Progress Note Patient seen today, length of contact: pt evaluated discussed with team chart reviewed Patient Chief Complaint: reports somewhat improved sleep but not more than 2 hours , reportedly awakened up frequently per staff, reportedly slept during day. appetite well. adherent with treatment. Problems Identified/Issues Discussed: alteration in mood alteration in coping Medical Problems: per chart Diagnostic Results: per psychiatry per medicine per nursing per social worker aide per recreational therapy Medication Change: No (stop bacitracin, cogentin 1mg x 1 ) Medical Record Reviewed: Yes Consults ordered or reviewed: pt seen by hospitalist Mental Status Examination - Cognitive Function Orientation: Person, Place, Situation Attention: WNL Concentration: WNL Association: WNL Fund of Knowledge: Poor Decription of patient's judgement and insights: impaired - Mood Mood: Depressed, Anxious - Affect Affect: Constricted - Speech Speech: Soft - Formal Thought Process Formal Thought Process: Delusions - Suicidal Ideation Suicidal Ideation: No - Homicidal Ideation Homicidal Ideation: No Goal/Treatment Plan - Goal/Treatment Plan Need for Continued Stay: Severe depression anxiety, Discharge may exacerbated symptoms Progress Toward Problem(s) and Goals/Treatment Plan: inpt milieu adjust meds per clinical status cogentin 1mg po x 1 dose ?akithesia access prn croatian speaking staff discharge planning in progress Estimated Date of D/C: 10/12/17 - Smoking Cessation Smoking Cessation Initiated: No Reason for not providing: deferred
[2017-10-08] MEDS: Cholecalciferol 1,000 INTLU TAB PO SCH (08:19)
[2017-10-08] MEDS: Venlafaxine 150 mg ER Cap PO SCH (08:19)
--- NOTE | 2017-10-08 14:14 | PCM.PYCHPN ---
Psychiatric Progress Note - Psychiatric Progress Note Patient seen today, length of contact: pt evaluated discussed with team chart reviewed Patient Chief Complaint: pt reports that is more anxious after lunch-for approx. 1 months times increase stressors related to finances, losing job, losing apartment-son is 18 years old. pt reports not be member of work force not receiving benefits reports ignorance related to available programs and how to qualify for said programs. pt was able to discuss status with this marine underwriter as well as primary RN. pt is adherent with treatment. reports feels as though "inside cannot rest". bonita Problems Identified/Issues Discussed: alteration in mood alteration in coping situational stressors primary language other than Greenlandic:: [place] Family Circumstances Medical Problems: per chart Diagnostic Results: per psychiatry per medicine per nursing per social services counselor per recreational therapy DSM 5 Symptoms Update: anxiety/?akethisia Medication Change: Yes (make clonazepam 0.5mg po am, 1mg po 1300 and 0.5mg po 1700) Medical Record Reviewed: Yes Consults ordered or reviewed: pt seen by hospitalist Mental Status Examination - Cognitive Function Orientation: Person, Place, Situation Attention: WNL Concentration: WNL Association: WNL Fund of Knowledge: Poor Decription of patient's judgement and insights: impaired - Mood Mood: Depressed, Anxious - Affect Affect: Constricted - Speech Speech: Soft Additional comments: pt is more verbal, explains status and history, - Formal Thought Process Formal Thought Process: No Impairment - Homicidal Ideation Homicidal Ideation: No Goal/Treatment Plan - Goal/Treatment Plan Need for Continued Stay: Severe depression anxiety, Discharge may exacerbated symptoms Progress Toward Problem(s) and Goals/Treatment Plan: inpt milieu adjust meds per clinical status ?anxiety and or akithesia-reported increased said symptoms after lunch-change clonazepam 0.5 mg am 1mg po and 0.5 mg po 1700-do not give if b/p less than 90/ 60 or r/r less than 12 bpm. get up slowly falls precautions review possible dependence tolerance-pt verbally agreeable positive teach back noted access prn singaporean speaking staff discharge planning in progress Estimated Date of D/C: 10/12/17 - Smoking Cessation Smoking Cessation Initiated: No Reason for not providing: pt defers
--- NOTE | 2017-10-08 16:53 | PCM.PYCHPN ---
Psychiatric Progress Note - Psychiatric Progress Note Patient seen today, length of contact: pt evaluated discussed with team chart reviewed Patient Chief Complaint: pt reports that is more anxious after lunch-for approx. 1 months times increase stressors related to finances, losing job, losing apartment-son is 18 years old. pt reports not be member of work force not receiving benefits reports ignorance related to available programs and how to qualify for said programs. pt was able to discuss status with this teletypewriter operator as well as primary RN. pt is adherent with treatment. reports feels as though "inside cannot rest". bonita Problems Identified/Issues Discussed: alteration in mood alteration in coping situational stressors primary language other than Frisian:: Martiniquais Family Circumstances Medical Problems: per chart Diagnostic Results: per psychiatry per medicine per nursing per criminal justice social worker per recreational therapy DSM 5 Symptoms Update: psychomotor excitation anxiety Medication Change: Yes (make clonazepam 0.5mg po am, 1mg po 1300 and 0.5mg po 1700) Medical Record Reviewed: Yes Consults ordered or reviewed: pt seen by hospitalist Mental Status Examination - Cognitive Function Orientation: Person, Place, Situation Attention: WNL Concentration: WNL Association: WNL Fund of Knowledge: Poor Decription of patient's judgement and insights: impaired - Mood Mood: Depressed, Anxious - Affect Affect: Constricted - Speech Speech: Soft - Formal Thought Process Formal Thought Process: No Impairment - Suicidal Ideation Suicidal Ideation: No - Homicidal Ideation Homicidal Ideation: No Goal/Treatment Plan - Goal/Treatment Plan Need for Continued Stay: Severe depression anxiety, Discharge may exacerbated symptoms Progress Toward Problem(s) and Goals/Treatment Plan: inpt milieu adjust meds per clinical status ?anxiety and or akithesia-reported increased said symptoms after lunch-change clonazepam 0.5 mg am 1mg po and 0.5 mg po 1700-do not give if b/p less than 90/ 60 or r/r less than 12 bpm. get up slowly falls precautions review possible dependence tolerance-pt verbally agreeable positive teach back noted access prn pashto speaking staff discharge planning in progress Estimated Date of D/C: 10/12/17 - Smoking Cessation Smoking Cessation Initiated: No Reason for not providing: defers
[2017-10-09] MEDS: Venlafaxine 150 mg ER Cap PO SCH (08:40)
[2017-10-09] MEDS: Cholecalciferol 1,000 INTLU TAB PO SCH (08:40)
[2017-10-09 08:41] VITALS: BP 130/91; PULSE 62
[2017-10-09 09:16] VITALS: RESP 18; TEMP 97.1
--- NOTE | 2017-10-09 13:31 | PN ---
Copied To: Darren Patel MD Attending MD: Darren Patel MD DATE: 10/09/2017 SUBJECTIVE: The patient seen and examined. Interim events noted. Psychiatric followup and intervention noted and appreciated. The patient remains in adult psych unit. The patient feels okay. Denies any specific complaint other than psychiatric issue. No specific issue reported by nursing staff. Psychiatry perkins, the patient seems to be improving as per nursing staff. PHYSICAL EXAMINATION: GENERAL: The patient is in no acute distress. VITAL SIGNS: Stable. Blood pressure is controlled. Physical exam is essentially unchanged. DIAGNOSTIC DATA: Available diagnostic data reviewed. ASSESSMENT AND PLAN: Overall, the patient's general medical condition is stable. Plan as ordered. Case and plan discussed with the patient. Darren Patel MD
--- NOTE | 2017-10-09 13:57 | PCM.PYCHDC ---
Mental Status Examination - Mental Status Examination Orientation: Person, Place, Situation Memory: Intact Mood: Neutral Affect: Broad Speech: Appropriate Attention: WNL Concentration: WNL Association: WNL Fund of Knowledge: WNL Formal Thought Process: No Impairment Description of patient's judgement and insight: partial insight fair judgment Psychotic Thoughts and Behaviors: pt denied any current psychotic symptoms, non elicited Suicidal Ideation: No Current Homicidal Ideation?: No Discharge Summary - Discharge Note Reason for Hospitalization: pt is 52ys old female, previous diagnosis of depression and one hospitalization in [place] about 20ys ago, currently not in treatment pt for past six months has been increasingly depressed due to break up of a relation she had for past 11ys,also increased financial difficulties pt reported decreased sleep with early insomnia, decreased appetite with at least 10lb loss, pt for past week, had low energy , psychomotor retardation, unable to get out of bed, no interest in any of daily life activities, on the day of evaluation pt became almost catatonic, also beame psychotic with paranoid delusions towards family members, she then started scratching herself irrationally and started having suicidal thoughts, she was brought to ER for evaluation on the unit pt isolative in her room, initially guarded, depressed mood and affect, passive suicidal ideation withut active plan or intent on the unit, denied command hallucinations, denied homicidal ideation Consultations:: List each consultation separately and include: 1. Reason for request. 2. Findings. 3. Follow-up Summary of Hospital Course include:: 1. Description of specific treatment plan utilized for patients during their course of treatmen. 2. Summarize the time- course for resolution of acute symptoms and/or regressed behaviors. 3. Describe issues identified and worked on during hospitalization. 4. Describe medication utilized. 5. Describe medical problems identified and treated. 6. Reassessment of suicide risk Summary of Hospital Course: pton admission presented with severe depression with psychotic features, reporting visual and auditory hallucinations, intense anxiety with panic attacks , pt reported suicidal ideation on the unit had to be placed on 1:1 observation for suicide risk, pt also presented with poor sleep and poor appetite she was placed on remeron 705mg qhs, pt was also placed on risperidone for psychotic symptoms with poor response, it was changed to haldol 5mg daily klonopin was added for anxiety 0.25mg tid , pt became less restless and less anxious with haldol, pt presented with gradual clearing off of the psychotic symptoms, effexor was added increase up to 150mg daily pt presented with brighter affect, , denied suicidal ideation or intent,1:1 observation was discontinued pt gradually participated in treatment attended groups, no reported side effects of medications reported improved sleep and appetite , decreased anxiety pt advised about importance of medication compliance and compliance with therapy on discharge mental status on discharge was stable, pt denied any suicidal or homicidal ideation denied any perceptual disturbances, denied any thoughts of self harm and no reported side effects of medications medications called in as requested by family outpatient follow up arranged by social worker assistant - Diagnosis (1) Depression Current Visit: Yes Status: Acute - Final Diagnosis (DSM 5) Condition upon Discharge: STABLE 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
== END 2017-10-09 15:30 | disposition home or self-care (01) | DRG 885 ==
LOC: H.ER 23:38 → H.ERHOLD 09-25 03:12 → H.PSYCH 09-25 04:38
PROVIDERS: ADMIT Psychiatry & Neurology Psychiatry; ATTEND Psychiatry & Neurology Psychiatry
PROC: GZHZZZZ Group Psychotherapy (ICD-10-PCS; principal; 2017-09-25)
PROC: GZ58ZZZ Individual Psychotherapy, Cognitive-Behavioral (ICD-10-PCS; 2017-09-25)
DX: F33.3 Major depressive disorder, recurrent, severe with psychotic symptoms (principal); R45.851 Suicidal ideations; F41.0 Panic disorder [episodic paroxysmal anxiety]; F41.1 Generalized anxiety disorder; E55.9 Vitamin D deficiency, unspecified; E53.8 Deficiency of other specified B group vitamins; I10 Essential (primary) hypertension; E78.5 Hyperlipidemia, unspecified; G47.00 Insomnia, unspecified